=== PATIENT | male | born 1960 | race Caucasian/White ===

== ENCOUNTER 2017-07-02 11:11 | Inpatient (IN) | payer OTHER ==
--- NOTE | 2017-07-02 11:56 | CPEKG ---
Heart Rate: 72 RR Interval: 833 P-R Interval: 156 QRSD Interval: 92 QT Interval: 368 QTC Interval: 403 P [place]: 29 QRS [place]: -2 T Wave [place]: 52 EKG Severity - NORMAL ECG - EKG Impression: SINUS RHYTHM Electronically Signed By: Dimitri Parkinson 03-Jul-2017 08:33:26
--- NOTE | 2017-07-02 12:33 | EDPHY ---
H & P Time Seen by Provider: 07/02/17 11:52 HPI/ROS: CHIEF COMPLAINT: Right face swelling HISTORY OF PRESENT ILLNESS: The patient is a 57-year-old male who presents emergency department with the recent complex medical history. He was sent in by his primary care physician Dr. Longoria for admission and further workup. 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 The patient developed right shoulder and scapular pain a couple of weeks ago. This progressed to his right chest and axilla. He has seen his primary care physician multiple times for this. His workup has included a chest x-ray which showed being megaly. This resulted in an echocardiogram which showed atrial shadow. He is scheduled to follow up with Cardiology. The patient had a CT myelogram. He is unable to get an MRI due to his pacer. This showed no acute disease. He was evaluated by a dentist with the panoramic x- ray for abscess. This was read as negative. Patient now has increasing right facial swelling and right neck swelling. His right shoulder pain persists. He has no shortness of breath. No cough. No fevers or chills. The patient's primary care physician reports that his heart rate has been in the 40s and his pacemaker is not firing. The patient is not lightheaded or dizzy. REVIEW OF SYSTEMS: My complete review of systems is negative except as mentioned in the HPI. Past Medical/Surgical History: Includes superior vena can syndrome Past surgical history: Includes angioplasty for superior vena cava syndrome, cholecystectomy Social: The patient is . Does not smoke. Smoking Status: Never smoked Physical Exam: Vitals noted. GENERAL: Well-appearing, in no acute distress, alert. HEENT: Patient has swelling to the right side of his face. There is erythema or warmth. He seems to have a right lower facial droop. Eyes normal to inspection, normal pharynx, no signs of dehydration. NECK: The patient's right lateral knee swelling. No erythema or warmth. No tenderness palpation. No adenopathy. No thyromegaly. supple. No signs of meningismus. RESPIRATORY: Clear to auscultation bilaterally, no rales, rhonchi or wheezing. CVS: Regular rate and rhythm, no rubs, murmurs, or gallops. ABDOMEN: Soft, nontender, nondistended, no organomegaly. BACK: Normal to inspection, no CVA tenderness. SKIN: Normal color, no rash, warm, dry. No pallor. EXTREMITIES: No pedal edema, no calf tenderness, no Homans sign or cords, no joint swelling. NEURO/PSYCH: Alert and oriented x3, normal mood and affect, normal motor sensory exam. No obvious cranial nerve deficit. Constitutional: Initial Vital Signs Temperature (C) 36.8 C 07/02/17 11:19 Heart Rate 75 07/02/17 11:19 Respiratory Rate 18 07/02/17 11:19 Blood Pressure 163/91 H 07/02/17 11:19 O2 Sat (%) 96 07/02/17 11:19 O2 Delivery Mode Room Air Allergies/Adverse Reactions: No Known Allergies Allergy (Verified 07/02/17 11:17) Home Medications: Medication Instructions Recorded Amoxicillin Trihydrate 500 mg PO Q8H 07/02/17 [Amoxicillin] Aspirin [Aspirin 81mg (*)] 81 mg PO HS 07/02/17 Atorvastatin Calcium [Lipitor 40 40 mg PO HS 07/02/17 mg (*)] Herbals/Supplements -Info Only 1 ea PO DAILY 07/02/17 Hydrocodone/Acetaminophen [[place] 1 - 2 tab PO Q6H PRN 07/02/17 5/325 (*)] Lisinopril [Zestril 40 mg (*)] 40 mg PO DAILY 07/02/17 Meloxicam [Mobic 15 mg] 15 mg PO HS 07/02/17 Metoprolol Succinate Xr [Toprol Xl 75 mg PO HS 07/02/17 50 mg (*)] [place]-3 Fatty Acids [Fish Oil 1000 3,000 mg PO DAILY 07/02/17 mg (*)] Sertraline HCl [Zoloft 50mg (*)] 50 mg PO HS 07/02/17 metroNIDAZOLE [Flagyl 500 mg (*)] 500 mg PO Q8H 07/02/17 Medical Decision Making ED Course/Re-evaluation: In the emergency department I discussed the plan with the patient. I answered all his questions. The gained affects from the patient's primary care physician with all of his previous studies. CT imaging was ordered. EKG shows normal sinus rhythm, normal rate, normal axis, normal intervals. There are no ST or T-wave abnormalities. EKG is normal as interpreted by me. The patient's CBC, chemistry, LFTs and lipase are normal. I discussed the case with the hospitalist service. The patient will be admitted for further evaluation. The patient is aware the plan. Head CT: Please refer the dictated report by Dr. Graham Guardado. The noncontrast head CT showed diffuse subarachnoid hemorrhage in both parietal lobes. I discussed the patient's history. Dr. Guardado will add on CT venogram. Report was given while the patient was still in CT imaging. I have not yet reported the results with the patient. I discussed the case with Dr. Bradshaw from the hospitalist service. He requests the patient be admitted to the PCU. CT imaging: Please refer the dictated report by Dr. Graham Guardado. I have further imaging studies reported. The patient has bilateral parietal subarachnoid hemorrhage. There is pre pontine hemorrhage by the brainstem. There appears to be tonsillar and uncal herniation. The patient's neck vessels appeared to be open. The patient has SVC stent in place. The SVC is small above the stent. The pacer is located on the left. The chest is otherwise clear. I discussed the case with Dr. Bradshaw from the hospitalist service. I also discussed the case with Neurosurgery. The patient's bed was upgraded to an ICU bed. I discussed the case with the patient and answered all his questions. On recheck he had no new focal deficits. He continues to have a right lower facial palsy. The swelling appears unchanged. PERRLA. The patient is smiling and interactive. He is acting appropriately. Patient denies headache or neck pain. Differential Diagnosis: My differential includes but is not limited to superior vena cava syndrome, vascular occlusion, action, aneurysm, coronary syndrome, CVA Critical Care Time: The patient required 35 min of critical care time. This was exclusive of any unbundled procedure. This was due the patient's significant recent history, reviewed the patient's medical record, consultation with the hospitalist and Neurosurgery, consultation with the radiologist, frequent rechecks. - Data Points Laboratory Results: Laboratory Results 07/02/17 11:59 07/02/17 11:59 07/02/17 07/02/17 07/02/17 11:59 11:59 11:59 WBC 7.55 10^3/uL 10^3/uL (3.80-9.50) RBC 5.39 10^6/uL 10^6/uL (4.40-6.38) Hgb 15.8 g/dL g/dL (13.7-17.5) Hct 46.8 % % (40.0-51.0) MCV 86.8 fL fL (81.5-99.8) MCH 29.3 pg pg (27.9-34.1) MCHC 33.8 g/dL g/dL (32.4-36.7) RDW 13.7 % % (11.5-15.2) Plt Count 184 10^3/uL 10^3/uL (150-400) MPV 10.2 fL fL (8.7-11.7) Neut % (Auto) 64.0 % % (39.3-74.2) Lymph % (Auto) 21.9 % % (15.0-45.0) [place] % (Auto) 11.9 % % (4.5-13.0) Eos % (Auto) 1.1 % % (0.6-7.6) Baso % (Auto) 0.7 % % (0.3-1.7) Nucleat RBC Rel Count 0.0 % % (0.0-0.2) Absolute Neuts (auto) 4.84 10^3/uL 10^3/uL (1.70-6.50) Absolute Lymphs (auto) 1.65 10^3/uL 10^3/uL (1.00-3.00) Absolute Monos (auto) 0.90 10^3/uL H 10^3/uL (0.30-0.80) Absolute Eos (auto) 0.08 10^3/uL 10^3/uL (0.03-0.40) Absolute Basos (auto) 0.05 10^3/uL 10^3/uL (0.02-0.10) Absolute Nucleated RBC 0.00 10^3/uL 10^3/uL (0-0.01) Immature Gran % 0.4 % % (0.0-1.1) Immature Gran # 0.03 10^3/uL 10^3/uL (0.00-0.10) PT 13.4 SEC SEC (12.0-15.0) INR 1.00 (0.83-1.16) APTT 29.7 SEC SEC (23.0-38.0) Sodium 141 mEq/L mEq/L (134-144) Potassium 4.2 mEq/L mEq/L (3.5-5.2) Chloride 103 mEq/L mEq/L (97-110) Carbon Dioxide 24 mEq/l mEq/l (22-31) Anion Gap 14 mEq/L mEq/L (8-16) BUN 21 mg/dL mg/dL (7-23) Creatinine 1.1 mg/dL mg/dL (0.7-1.3) Estimated GFR > 60 Glucose 91 mg/dL mg/dL (70-100) Calcium 10.3 mg/dL mg/dL (8.5-10.4) Total Bilirubin 0.7 mg/dL mg/dL (0.1-1.4) Conjugated Bilirubin 0.4 mg/dL mg/dL (0.0-0.5) Unconjugated Bilirubin 0.3 mg/dL mg/dL (0.0-1.1) AST 19 IU/L IU/L (17-59) ALT 44 IU/L IU/L (21-72) Alkaline Phosphatase 88 IU/L IU/L (38-126) Troponin I < 0.012 ng/mL ng/mL (0.000-0.034) Total Protein 7.3 g/dL g/dL (6.3-8.2) Albumin 4.4 g/dL g/dL (3.5-5.0) Lipase 186 IU/L IU/L (23-300) Medications Given: Discontinued Medications Sodium Chloride (Ns) 500 mls @ 1,000 mls/hr IV EDNOW ONE PRN Reason: Protocol Stop: 07/02/17 13:05 Last Admin: 07/02/17 12:45 Dose: 500 mls Departure - Departure Disposition: [place] Inpatient Acute Clinical Impression: Right facial swelling, Right facial droop, Subarachnoid bleed, Stenosis of superior vena cava Condition: Fair
[2017-07-02] MEDS ORDERED: NS 500 ML IV ONE (12:36)
[2017-07-02 12:42] LABS: % IMMATURE GRANULYOCYTES 0.4 % (0.0-1.1); ABSOLUTE IMMATURE GRANULOCYTES 0.03 10^3/uL (0.00-0.10); ADD DIFF? NO; ADD MORPH? NO; ADD SCAN? NO; ATYPICAL LYMPHOCYTE FLAG 0 (0-99); FRAGMENT RBC FLAG 0 (0-99); HEMATOCRIT 46.8 % (40.0-51.0); HEMOGLOBIN 15.8 g/dL (13.7-17.5); LEFT SHIFT FLG 0 (0-99); LIPEMIA HEMOLYSIS FLAG 90 (0-99); MEAN CELL HEMOGLOBIN 29.3 pg (27.9-34.1); MEAN CELL HEMOGLOBIN CONCENTR. 33.8 g/dL (32.4-36.7); MEAN CELL VOLUME 86.8 fL (81.5-99.8); MEAN PLATELET VOLUME 10.2 fL (8.7-11.7); PLATELET CLUMPS FLAG 0 (0-99); PLATELET COUNT 184 10^3/uL (150-400); RED BLOOD CELL COUNT 5.39 10^6/uL (4.40-6.38); RED CELL DISTRIBUTION WIDTH 13.7 % (11.5-15.2)
[2017-07-02 12:46] LABS: PROTIME(PATIENT) 13.4 SEC (12.0-15.0)
[2017-07-02 12:47] LABS: APTT 29.7 SEC (23.0-38.0)
[2017-07-02 12:48] LABS: ALANINE AMINOTRANSFERASE 44 IU/L (21-72); ALBUMIN 4.4 g/dL (3.5-5.0); ALKALINE PHOSPHATASE 88 IU/L (38-126); ANION GAP 14 mEq/L (8-16); ASPARTATE AMINOTRANSFERASE 19 IU/L (17-59); BILIRUBIN,TOTAL 0.7 mg/dL (0.1-1.4); BILIRUBIN-CONJUGATED 0.4 mg/dL (0.0-0.5); BILIRUBIN-UNCONJUGATED 0.3 mg/dL (0.0-1.1); CALCIUM 10.3 mg/dL (8.5-10.4); CARBON DIOXIDE 24 mEq/l (22-31); CHLORIDE 103 mEq/L (97-110); CREATININE 1.1 mg/dL (0.7-1.3); GLOMERULAR FILTRATION RATE > 60; GLUCOSE 91 mg/dL (70-100); POTASSIUM 4.2 mEq/L (3.5-5.2); SODIUM 141 mEq/L (134-144); TOTAL PROTEIN 7.3 g/dL (6.3-8.2)
[2017-07-02 12:59] LABS: TROPONIN I < 0.012 ng/mL (0.000-0.034)
[2017-07-02] MEDS ORDERED: IOPAMIDOL (ISOVUE 370) 100 ML BTL IV ONE (13:13)
[2017-07-02] MEDS ORDERED: ACETAMINOPHEN 325 MG TAB PO PRN (15:43)
[2017-07-02] MEDS ORDERED: ONDANSETRON 4 MG/2 ML VIAL IVP PRN (15:43)
[2017-07-02] MEDS ORDERED: HYDROmorphONE/DILAUDID 1 MG/ML INJ IVP PRN (15:43)
[2017-07-02] MEDS ORDERED: PROMETHAZINE HCL 25 MG/ML INJ IVP PRN (15:43)
[2017-07-02] MEDS ORDERED: ONDANSETRON DISINTEGRATING 4 MG TAB PO PRN (15:43)
[2017-07-02] MEDS ORDERED: HYDROmorphone HCL/NS/PF 0.4 MG/2 ML SYR IVP PRN (15:46)
[2017-07-02 16:09] LABS: HEMATOCRIT 46.8 % (40.0-51.0)
--- NOTE | 2017-07-02 16:54 | GHP ---
[f rep st] HISTORY AND PHYSICAL DATE OF ADMISSION: 07/02/2017 The patient is a 57-year-old gentleman with a history of remote SVC syndrome with stent, pacemaker, who presents to the emergency department at the request of his primary care physician regarding recent facial swelling, as well as pain shooting down his right arm, shoulder and even flank, as well as a new right- sided facial droop. He has also had some tooth pain. He had recent Panorex dental x-ray showing no abscess. The patient has not had fever or chills. He has lost about 5 pounds because of poor p.o. intake, but no B symptoms such as drenching night sweats. He has not had a recent dental cleaning. He has had up-to-date colonoscopies. He has a mild headache but no significant headache. He is alert and conversant when I speak with him. He does not use IV drugs. The patient is largely without complaints, other than this facial swelling. He has had a large outpatient workup that includes a Panorex which is negative for tooth abscess, a CT myelogram performed yesterday which is essentially unremarkable. During that time some CSF was removed via lumbar puncture. He has an echocardiogram that showed normal LV EF 60%, mild septal wall hypertrophy with diastolic dysfunction, normal RV size and function, highly mobile density measuring about 1 cm attached to the mitral anulus from the atrial side. He also had a CT myelogram showing multilevel degenerative disk disease with disk space narrowing, moderate diffuse bulges, marginal osteophytes , no central canal stenosis, moderate foraminal narrowing, with the exception of C5-C6 he has moderate narrowing on the right. The patient otherwise has a negative review of systems, a 10-point review of systems having been conducted. The patient actually looks clinically quite well and is conversant and alert. PAST MEDICAL HISTORY: Hypertension, hyperlipidemia, hypogonadism, sick sinus syndrome status post pacer in the 90s, when he was in his 30s, history of SVT, history of ventricular tachycardia, superior vena cava syndrome status post stent, nonobstructive coronary disease, YUN on CPAP, hyperplastic colon polyp, hemorrhoids he describes as aggressive. SOCIAL HISTORY: He travels a lot for work, lives in [place], has 1-2 beers every couple of days. His is , she is an RN, present at the bedside. FAMILY HISTORY: Notable for coronary disease in his brother and father, asthma in his mom and son. ALLERGIES: He has no known drug allergies. HOME MEDICATIONS: Amoxicillin for tooth abscess, hydrocodone, APAP, metronidazole for tooth abscess, aspirin, atorvastatin, lisinopril, meloxicam, metoprolol 75 h.s., fish oil, sertraline. PHYSICAL EXAMINATION: VITAL SIGNS: Temp 36.8, blood pressure 163/91, pulse 75 , breathing 18 times a minute, 96% on room air. GENERAL: No acute distress. HEENT: He has some facial swelling. He has a right facial droop. Oropharynx is clear. He has no pain on percussion of his right-sided teeth. NECK: Supple. It is swollen. Neck veins are elevated. LUNGS: Clear to auscultation bilaterally. HEART: S1, S2 without murmurs. ABDOMEN: Soft, nontender, nondistended. LOWER EXTREMITIES: Without edema. Calves are nontender. SKIN: Without rash. He has no peripheral embolic phenomenon in the hands or nails. NEUROLOGIC: Notable for strength and sensation are intact bilaterally with his upper and lower extremity sensation. Cerebellar testing is normal. Speech is normal and fluent without dysarthria. He has a right facial droop. LABS: White count 7.5, hematocrit 47, platelets are 184,000. INR is 1. Sodium 141, potassium 4.2, chloride 103, bicarb 24, BUN 21, creatinine 1.1. LFTs normal. Troponin less than 0.012. EKG interpreted by me, shows sinus at 72 with normal axis and intervals, with no ST or T-wave changes. There are no dropped beats. CT of his head was initially read as bilateral parietal subarachnoid hemorrhage, subarachnoid blood in the basilar cisterns. This has been updated to be felt that it is actually contrast from a CT myelogram yesterday. He does have ischemic changes with the brainstem and farhad associated with mild tonsillar and uncal herniation. Again I will remind you the patient is alert and conversant. CTA of the head and neck shows no obstruction. CT of the chest shows negative for acute pulmonary embolism. Left subclavian transvenous pacer. Severe narrowing of his SVC proximally at the confluence of the brachiocephalic veins. There is a stent in place. I have discussed the case with Dr. Lamonte Pedroza and Dr. Alla Ferguson, as well as Dr. Niki Nevarez and Dr. Hugh Choi. 80 minutes of critical care was spent taking care of this patient. 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 1. Superior vena cava syndrome. I believe the patient has SVC syndrome on the basis of a CTA of his chest and his facial swelling. How it relates to his facial droop, I am uncertain. Ultimately, when his neurosurgical and infectious issues have been cleared up he needs another stent. Interventional Radiology can be contacted at that time. 2. Question of endocarditis. The patient has no peripheral embolic findings consistent with endocarditis. I have drawn blood cultures now. I have drawn blood cultures for the morning. Infectious Disease will see him. On his recent Panorex, I do not have the film, is not consistent with an abscessed tooth, nor is his exam. He did have some tooth pain prior. Will follow. I will not continue his antibiotics. I spoken with Cardiology, will perform JENNIFER in the morning. 3. Possible herniation. The patient has elevated intracranial pressure on the basis of an SVC syndrome, and he also had a lumbar puncture with small volume of CSF removal. He has been seen by Neurosurgery. His exam findings are not consistent with somebody who is herniating. He will be followed in step-down and Neurosurgery will follow. Repeat imaging at the discretion of neurosurgery. 4. Pacemaker. There is some question that his pacemaker is not working. He sounds like he has minimal dependence on it. I will interrogate it. 5. Right facial droop. This certainly is consistent with a CVA. Alternative possibilities include stretching of the nerve with sagging of his brain following LP or elevated intracranial pressure. Would follow. I have consulted neurology. 6. Prophylaxis. Pharmacologic prophylaxis indicated, but given the complexity of the current situation, will proceed with SCDs for now. 7. Question subarachnoid hemorrhage. I believe this is contrast, based on the clinical scenario in the patient. 8. Hyperlipidemia. Continue his medicines. 9. Hypertension. Continue his medicines. DISPOSITION: Inpatient status step-down. /[id number]/MODL MTDD
--- NOTE | 2017-07-02 17:30 | GHP ---
[f rep st] HISTORY AND PHYSICAL DATE OF ADMISSION: 07/02/2017 CHIEF COMPLAINT: Right facial swelling. HPI: This is a 57-year-old male with a complex past medical history. He is currently being worked up for supposed SVC syndrome and, as of Thursday, started getting increasing swelling in the right side of his face and pain in his right scapular region and down his right arm. He does follow up with Cardiology and he does have a history of angioplasty versus superior vena cava syndrome in the past. Patient states that on Thursday he started to get swelling in the right side of his face and went to go see his dentist, as they thought it was a tooth abscess. They did a workup and did not find any evidence of any abscess. He states that his pain in his right scapular region was so severe that he was unable to roll over on the right side and was not able to get out of bed due to this pain. He states that over the day it did dissipate, but then toward the evening it would return. Currently today he has no pain in his scapular region or in his armpit, but does continue to have worsening swelling in the right side of his face. The patient was following up with Cardiology today, who recommended that he go to the emergency room at [facility], as they had access to other services, such as Neurology, should these be needed. His prototype model maker was concerned over return for his SVC syndrome. He presented to the [facility] emergency room, where a head CT was performed, that showed what was thought to be scattered diffuse subarachnoid hemorrhage. However, the patient did let us know that yesterday he did have a CT myelogram of his cervical spine in order to look for any further cervical pathology that may explain his arm pain and swelling. Currently at this time, the patient has no other complaints other than his right facial swelling and some mild right- sided posterior scapular pain. He denies any numbness, tingling or pain in his legs. He denies any headaches. He denies any vision changes, any nausea, vomiting, chest pain or shortness of breath. REVIEW OF SYSTEMS: All review of systems are negative, except for mentioned in the HPI. PAST MEDICAL HISTORY: The patient has a history of superior vena cava syndrome. PAST SURGICAL HISTORY: Includes angioplasty for superior vena cava syndrome and cholecystectomy. SOCIAL HISTORY: The patient is . He denies any tobacco use. His is at the bedside today. ALLERGIES: Patient has no known drug allergies. CURRENT MEDICATIONS: Include aspirin, atorvastatin, herbal supplements, [place] 5 /325, lisinopril, meloxicam, metoprolol, omega-3 fatty acids, sertraline and Flagyl. OBJECTIVE: VITAL SIGNS: Blood pressure 145/68, heart rate 71, respiratory rate 16, O2 saturation is 93% on room air, and temperature is 37.3 degrees Celsius. CONSTITUTIONAL: Patient is alert and oriented x3. No acute distress. HEENT: Head is normocephalic, atraumatic. Does have diffuse facial swelling over the right side of his face, especially in his cheek and chin area. This is somewhat tender to palpation. Eyes: Pupils are pupils are equal , react to light and accommodation. Extraocular muscles are intact. NECK: Supple, without any induration and full range of motion. NEUROLOGIC: Cranial nerves 2-12 are grossly intact. Tongue protrusion is midline. Palate raises symmetrically. Accessory muscles are 5/5 and equal in strength. His facial sensation is intact to light touch. There is negative pronator drift. Motor: Bilateral upper extremities are 5/5 and equal in strength including all muscle groups including deltoids, biceps, triceps, wrist extensors, flexors, interossei and derrick builder; and bilateral lower extremities are 5/5 and equal in strength in quadriceps, hamstrings, dorsiflexion, plantarflexion, and EHL. Deep tendon reflexes are 2+ bilaterally in the biceps, brachioradialis, patellar and Achilles. Sensation is intact over the normal dermatomal distribution of the body. He is negative for Bruce's and clonus; and toes are downgoing. MUSCULOSKELETAL: Patient is somewhat tender to palpation over the right posterior scapular region, as well as his right axilla. There is no swelling of note here or redness or erythema. EXTREMITIES: Extremities are pink, warm; and there is no cyanosis or edema noted in his upper extremities or lower extremities. LABORATORY DATA: Laboratory data taken on 07/02/2017 reveals a white blood cell count of 7.55, red blood cell count 5.39, hemoglobin 15.8, hematocrit 46.8 , platelets are 184. ESR is currently pending. Coags: INR is 1.0, aPTT is 29.7, PT 13.7. Sodium 141, potassium 4.2, chloride 103, carbon dioxide 24, anion gap 14, BUN 21, creatinine 1.1, glucose 91, calcium 10.3. Troponin less than 0.012. C-reactive protein 35.0. Total protein 7.3, albumin 4.4, and lipase is 186. DIAGNOSTIC IMAGING REVIEW: A head CT was performed without contrast, which showed initially bilateral parietal subarachnoid hemorrhage and subarachnoid blood within the basilar cisterns. Ischemic changes within the brainstem and farhad associated with mild tonsillar and uncal herniation. Additional clinical information was provided by the patient, given that he underwent a myelographic examination yesterday [facility]. Given this information, the hyperdensity present in the subarachnoid spaces of the parietal regions bilaterally and the basilar cisterns is most likely related to residual iodinated contrast in the subarachnoid space from recent myelographic examination. This would explain the symmetry bilaterally of the findings. The hypodensity of the brainstem may be related to adjacent increased iodinated contrast from the myelography as well. A ACTV was performed as well as a head CT and CTA, but no report is available for me to review at this time. They are reportedly negative. A chest and thorax CTA was performed, which shows negative CT examination of the chest for acute pulmonary thromboembolic disease. A left subclavian transvenous pacemaker. Severe narrowing of the superior vena cava proximally at the confluence of the brachiocephalic veins. ASSESSMENT AND PLAN: This is a 57-year-old gentleman who over the last few days has had an increase in swelling of the right side of his face as well as pain in the right scapular region in his right arm. The patient does have a significant history for superior vena cava syndrome, and he is currently being worked up by Cardiology. Neurosurgery was consulted after a head CT was performed that showed what was thought to be scattered subarachnoid hemorrhage, but further clinical documentation was found that stated the patient did undergo a CT myelogram of his cervical spine yesterday and that these findings on his head CT were likely to be from the leftover iodinated contrast. The patient is GCS 15 without any other neurological deficits. He does have right- sided facial swelling and tenderness location over the right scapular region. The patient will be admitted to the stepdown unit for further workup by Cardiology. We do not have current images to review for his CT myelogram of the cervical spine; however, when this is available, we will review this tomorrow in order to see if there is any cervical pathology that could relate to any of his symptoms. NEUROSURGERY ATTENDING NOTE I saw the patient in the ER and agree with the note as outline above. I reviewed his images with Radiology, and they agree that his hyperdensities are contrast related and not bleeding. This would mean he requires no further imaging from our standpoint and does not appear to have a Neurosurgical issue. We will try to review his cervical spine CT myelogram and make outpatient recommendations from there. This was discussed with the patient, his , the admitting Medicine team and the ER team, who were all in agreement. /[id number]/MODL MTDD
[2017-07-02] MEDS: HYDROCODONE/APAP 5/325 TAB PO PRN (18:23)
[2017-07-02] MEDS: LISINOPRIL 40 MG TAB PO SCH (23:30)
[2017-07-02] MEDS: MELOXICAM 15 MG PO SCH (23:30)
[2017-07-02] MEDS: ASPIRIN 81 MG CHEWABLE TAB PO SCH (23:30)
[2017-07-02] MEDS: ATORVASTATIN CALCIUM 40 MG TAB PO SCH (23:31)
[2017-07-02] MEDS: METOPROLOL SUCCINATE XR 50 MG TAB PO SCH (23:31)
[2017-07-02] MEDS: SERTRALINE HCL 50 MG TAB PO SCH (23:32)
[2017-07-03] MEDS: ASPIRIN 81 MG CHEWABLE TAB PO SCH ×2 (00:04→00:59)
[2017-07-03] MEDS: OMEGA-3 FATTY ACIDS 1,000 MG CAP PO SCH ×2 (00:05→21:06)
[2017-07-03] MEDS: SERTRALINE HCL 50 MG TAB PO SCH ×2 (00:05→21:07)
[2017-07-03 06:14] LABS: % IMMATURE GRANULYOCYTES 0.4 % (0.0-1.1); ABSOLUTE IMMATURE GRANULOCYTES 0.03 10^3/uL (0.00-0.10); ADD DIFF? NO; ADD MORPH? NO; ADD SCAN? NO; ATYPICAL LYMPHOCYTE FLAG 0 (0-99); FRAGMENT RBC FLAG 0 (0-99); HEMATOCRIT 45.2 % (40.0-51.0); HEMOGLOBIN 15.5 g/dL (13.7-17.5); LEFT SHIFT FLG 0 (0-99); LIPEMIA HEMOLYSIS FLAG 90 (0-99); MEAN CELL HEMOGLOBIN CONCENTR. 34.3 g/dL (32.4-36.7); MEAN CELL VOLUME 87.6 fL (81.5-99.8); MEAN PLATELET VOLUME 10.1 fL (8.7-11.7); PLATELET CLUMPS FLAG 0 (0-99); PLATELET COUNT 195 10^3/uL (150-400); RED BLOOD CELL COUNT 5.16 10^6/uL (4.40-6.38); RED CELL DISTRIBUTION WIDTH 13.7 % (11.5-15.2)
[2017-07-03 06:22] LABS: INR 1.05 (0.83-1.16); PROTIME(PATIENT) 13.9 SEC (12.0-15.0)
[2017-07-03 06:23] LABS: APTT 30.8 SEC (23.0-38.0)
[2017-07-03 06:57] LABS: ANION GAP 14 mEq/L (8-16); CALCIUM 9.9 mg/dL (8.5-10.4); CARBON DIOXIDE 23 mEq/l (22-31); CHLORIDE 104 mEq/L (97-110); GLOMERULAR FILTRATION RATE > 60; GLUCOSE 101 mg/dL (70-100); POTASSIUM 4.6 mEq/L (3.5-5.2); SODIUM 141 mEq/L (134-144)
[2017-07-03] MEDS ORDERED: OMEGA-3 FATTY ACIDS 1,000 MG CAP PO SCH (09:00)
[2017-07-03] MEDS ORDERED: Herbals/Supplements -Info Only PO SCH (09:00)
[2017-07-03] MEDS ORDERED: LISINOPRIL 40 MG TAB PO SCH (09:00)
--- NOTE | 2017-07-03 09:58 | NEUSURGPN ---
Assessment/Plan: 57y/o male with shoulder pain and facial swelling. His CT mhyelogram from [facility] on 07/01/17 demonstrates C5/6 foraminal stenosis without central cord compression. This may be contributing to the patient shoulder pain. Would recommended he follow up with our office in 4 weeks ( either with Dr. Pedroza or Dr. Negron in [place] No acute neurosurgical indication on his CT myelogram. Appreciate medicine working up his facial swelling. Will s/o off at this time. Please notify NS with any change in neuro/ motor exam Subjective: facial swelling and movement improved today. Continues with shoulder pain Objective: NAD A&Ox3 MAEx4 5/5 and equal in BUE and BLE. - Physician Discussed Patient with : [facility] Physical Exam - Vitals, I&O, Labs I and O 07/02/17 07/03/17 07/04/17 05:59 05:59 05:59 Intake Total 1500 Balance 1500 Weight 101.514 kg Intake: Oral (ml) 1000 IV Infused (ml) 500 Other: Number of Voids 1 Toilet 3 Vital Signs Temp Pulse Resp BP Pulse Ox 36.8 C 60 15 122/76 H 96 07/03/17 00:06 07/03/17 06:01 07/03/17 06:01 07/03/17 06:01 07/03/17 06:01 Laboratory Results 07/03/17 06:05 07/03/17 06:05 ICD10 Worksheet Patient Problems: Problems Problem Status Onset Right facial swelling Acute Stenosis of superior vena cava Acute Subarachnoid bleed Acute
--- NOTE | 2017-07-03 11:00 | HOSPPROG ---
Hospitalist Progress Note Assessment/Plan: New patient encounter This is a 57 yo male with hx of SVC syndrome/obstruction who p/w several weeks of worsening right sided neck and facial swelling as well as right facial droop and right shoulder swelling. #SVC syndrome -Clinically right facial and neck swelling is improving today -Previous Stent in place, may need repeat #?SAH. This is likely due to contrast from CT Myelogram of cervical spine done on the day prior to admission #malfunctioning Pacemaker. The pacer is being interrogated today #?Pericarditis. Not currently on abx. He is scheduled for a JENNIFER today. ID will consult #Right shoulder pain: Etiology unclear. CT Myelogram is c/w c5/6 foraminal stenosis w/o cervical cord compression. NS recommends that he f/u in [address] Morton vs Dr. Negron. NS has signed off #Right facial droop: Neuro is following. This is likely as a result the swelling. No e/o of CVA. Very reassuring neuro exam #HTN: overall well controlled. On Lisinopril and Metoprolol #YUN: on CPAP DVT proph: SCD's Dispo: cont inpatient Subjective: Facial swelling is improving. Right shoulder pain is better. No focal neuro deficits. No CP, palpitations, SOB, leg swelling. Objective: Vital Signs Temp Pulse Resp BP Pulse Ox 36.8 C 60 15 122/76 H 96 07/03/17 00:06 07/03/17 06:01 07/03/17 06:01 07/03/17 06:01 07/03/17 06:01 Laboratory Results 07/03/17 06:05 07/03/17 06:05 07/02/17 07/03/17 07/04/17 05:59 05:59 05:59 Intake Total 1500 Balance 1500 PT 13.9 SEC (12.0-15.0) 07/03/17 06:05 INR 1.05 (0.83-1.16) 07/03/17 06:05 - Physical Exam Constitutional: no apparent distress Eyes: PERRL Ears, Nose, Mouth, Throat: moist mucous membranes, hearing normal, other (right sided face and neck swelling) Cardiovascular: regular rate and rhythym, No JVD, No edema Respiratory: no respiratory distress, no rales or rhonchi, clear to auscultation Gastrointestinal: normoactive bowel sounds, soft, non-tender abdomen Skin: warm Neurologic: AAOx3 Psychiatric: interacting appropriately, not anxious, not encephalopathic, thought process linear ICD10 Worksheet Patient Problems: Problems Problem Status Onset Right facial swelling Acute Stenosis of superior vena cava Acute Subarachnoid bleed Acute
--- NOTE | 2017-07-03 11:23 | PDMN ---
Medical Necessity Medical necessity: Patient meets INPT criteria per physician note and [facility] Disease [facility] (presents w/ new onset R-sided facial droop and recent increasing facial swelling, R arm/shoulder/flank pain; remote hx of SVC syndrome w/stent; awaiting JENNIFER and further cardiac evaluation and ID consult; anticipated LOS > 2 midnights for ongoing eval and treatment.)
--- NOTE | 2017-07-03 11:46 | ASMTCASEMG ---
Living Arrangements What is your living Answers: With Spouse arrangement? Who do you live with? Type Of Residence What kind of residence do Answers: House you live in? Discharge Plan Comments Coordination Status Comments Notes: Patient is a 57yo male with a hx of remote SVC syndrome with stent, pacemaker, who was admitted for unexplained facial swelling and right sided facial droop. No therapies have been ordered. Patient is and lives in [place] with his . D/C needs TBD. Patient will likely d/c home independently. CM will follow. Date Signed: 07/03/2017 11:46 AM Electronically Signed By:Maria Antonia Lake LCSW
--- NOTE | 2017-07-03 13:34 | PDANEPAE ---
ANE History of Present Illness here for JENNIFER/CV ANE Past Medical History - Cardiovascular History Hx Hypertension: Yes Hx Arrhythmias: No Hx Chest Pain: No Hx Coronary Artery / Peripheral Vascular Disease: No Hx CHF / Valvular Disease: No Hx Palpitations: Yes Cardiovascular History Comment: h/o SCV syndrome - Pulmonary History Hx COPD: No Hx Asthma/Reactive Airway Disease: No Hx Recent Upper Respiratory Infection: No Hx Oxygen in Use at Home: No Hx Sleep Apnea: Yes Sleep Apnea Screening Result - Last Documented: Positive - Endocrine History Hx Diabetes: No - Renal History Hx Renal Disorders: No - Liver History Hx Hepatic Disorders: No - Chronic Pain History Chronic Pain: No ANE Review of Systems Review of systems is: negative Review of Systems: - Exercise capacity Exercise capacity: >=4 METS ANE Patient History - Allergies Allergies/Adverse Reactions: No Known Allergies Allergy (Verified 07/02/17 11:17) - Home Medications Home medications: home medication list seen and reviewed Home Medications: Amoxicillin Trihydrate [Amoxicillin] 500 mg PO Q8H 07/02/17 [Last Taken 05:00] Aspirin [Aspirin 81mg (*)] 81 mg PO HS 07/02/17 [Last Taken 06/24/17] Atorvastatin Calcium [Lipitor 40 mg (*)] 40 mg PO HS 07/02/17 [Last Taken ] Herbals/Supplements -Info Only 1 ea PO DAILY 07/02/17 [Last Taken 07/01/17] Hydrocodone/Acetaminophen [[place]uney 5/325 (*)] 1 - 2 tab PO Q6H PRN 07/02/17 [Last Taken 07/02/17 05:00] Lisinopril [Zestril 40 mg (*)] 40 mg PO DAILY 07/02/17 [Last Taken 07/01/17] Meloxicam [Mobic 15 mg] 15 mg PO HS 07/02/17 [Last Taken 07/01/17] Metoprolol Succinate Xr [Toprol Xl 50 mg (*)] 75 mg PO HS 07/02/17 [Last Taken 07/01/17] [place]-3 Fatty Acids [Fish Oil 1000 mg (*)] 3,000 mg PO DAILY 07/02/17 [Last Taken 07/01/17] Sertraline HCl [Zoloft 50mg (*)] 50 mg PO HS 07/02/17 [Last Taken 07/01/17] metroNIDAZOLE [Flagyl 500 mg (*)] 500 mg PO Q8H 07/02/17 [Last Taken 07/02/17 05 :00] - NPO status NPO Status: no food or drink >8 hours NPO Since - Liquids (Date): 07/02/17 NPO Since - Liquids (Time): 00:00 NPO Since - Solids (Date): 07/02/17 NPO Since - Solids (Time): 00:00 - Smoking Hx Smoking Status: Never smoked ANE Labs/Vital Signs - Labs Result Diagrams: 07/03/17 06:05 07/03/17 06:05 - Vital Signs Blood Pressure: 118/61 Heart Rate: 68 Respiratory Rate: 15 O2 Sat (%): 93 Height: 180.34 cm Weight: 101.514 kg
[2017-07-03] MEDS ORDERED: PROPOFOL/EMULSION 500 MG/50 ML BOTTLE IV ONE ×2 (13:36)
--- NOTE | 2017-07-03 13:36 | PDHPUP ---
History & Physical Update H&P update statement: This history and physical update is based on an assessment of the patient which was completed after admission or registration (within 24 hours), but prior to the surgery/procedure. H&P update: H&P reviewed & patient examined, no change in patient's condition since H&P completed
--- NOTE | 2017-07-03 14:14 | NEUROPROG ---
Assessment: [id number] CC: Dr. Philip Bradshaw (Hospitalist) consulted neurology for right facial weakness. Results placed in EMR for his review. HPI: He has a complicated history but it appears he has had superior vena cava syndrome in the past. He has had unexplained right facial swelling for the past few weeks and it was noted some right facial weakness. His facial swelling has improved since admission and now his right facial weakness is improved (per patient). Pt also evaluated by neurosurgery for a head CT which suggested SAH but was later felt to be from a recent CT myelogram with remaining dye. Neurosurgery reviewed the myelogram and found it showed some degenerative changes which may explain his right shoulder pain. He was told to f/u otpt with neurosurgery to address. He was neurologically normal (othan right facial swelling and weakness) so it was felt he did not have any acute intracranial problem. He could not obtain a brain MRI due to a pacemaker. Cardiology also was evaluating him for a possible malfunctioning pacemaker, possible cardiac mass, and possible endocarditis. ID was consulted as well. I saw the patient initially on 07/03/17 and noted right cheek region mild to moderate swelling and mild right facial weakness (possibly eye more open on right and lower facial weakness). I felt his right facial weakness was likely compressing his facial nerve but both conditions were improving. I recommended outpatient f/u with me in 1-3 weeks. 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, CAD, YUN on CPAP, hyperplastic colon polyp, hemorrhoids Home Meds: amoxicillin for tooth abscess, hydrocodone, APAP, metronidazole, ASA , atorvastatin, lisinopril, mobic, metoprolol, sertraline SHx: FHx: CAD, asthma ROS: Pt denied acute fever, total vision loss, active severe chest pain, respiratory failure, total body severe rash, total bowel/bladder incontinence, psychosis, active seizures, or active bleeding O: VS reviewed General: Alert Eyes: Fundoscopic exam not able to visualize optic disks CV: Heart RRR, no murmur, no carotid bruit Lungs: Clear to auscultation bilaterally, no rhonci or rales Neuro: - Mental: . Oriented x person/place/date . concentration appears normal . speech fluency/comprehension normal . memory appears normal . fund of knowledge appear intact - Cranial Nerves: . II: PERRL, VFFTC . III/IV/: EOMI, no nystagmus, normal smooth pursuits, no Ptosis . V: facial sensation intact to LT . VII: mild right lower facial weakness and right eye appears more open the left (weakness on right eye closure?) but pt also has noted swelling in the right cheek area . VIII: hearing intact to conversation . IX/X: uvula raises symmetrically . XI: SCM 5/5 B/L strength . XII: tongue protrudes midline w/nl strength - Motor: . Tone: normal tone in all 4 extrem . Strength: no pronator drift, strength 5/5 throughout (B/L delt, bic, tri, hand sales and marketing specialist, hf/he, df/pf) - Reflexes: B/L bic/BR/patella 2/4 - Sensory: all 4 extrem intact to light touch - Coord: [id number] wnl, EAMON wnl, [id number] wnl - Gait: deferred Labs: 07/02/17- ESR 10, CMP wnl, CRP 35H 07/03/17- CBC wnl, Coags wnl Rads: 07/02/17- Head CT: B/L parietal SAH and ischemic changes in brainstem and farhad associated with mild tonsillar and uncal herniation (neurosurgery felt this was most likely persistent contrast from recent CT myelogram). (I personally visualized the study on 07/03/17) 07/02/17- CTA head/neck: normal CTA of neck, normal CTA of head Assessment: 1. Possible Endocarditis, malfunctioning pacemaker, possible cardiac mass, and SVC Syndrome: ID and cardiology consulting 2. Possible SAH but more likely not and related to dye from prior CT: Neurosurgery consulting 3. RIght Facial Swelling and Right Facial weakness: Unclear cause. Facial weakness likely be from facial swelling compressing nerve. Facial weakness improving with improved facial swelling. Defer management and evaluation of facial swelling to hospitalist. 4. Possible Herniation of brain on head CT: Neurosurgery consulting and they feel there is likely no significant brain problem. As the patient is wide awake and neurologically normal (other than right facial swelling) I agree with that assessment. Pt cannot have MRI due pacemaker. Will get repeat head CT and if unremarkable will not pursue further evaluation. 5. Right shoulder pain: Possibly from cervical degen disease. Pt has planned f/ u in neurosurgery clinic to address. Plan: - Head CT - F/U neurology clinic in 1-4 weeks after discharge If head CT is unremarkable then no further neurologic w/u needed and neurology will sign off. Please call for any change in neurologic status. Objective: Vital Signs Temp Pulse Resp BP Pulse Ox 37.1 C 68 15 118/61 93 07/03/17 11:57 07/03/17 13:34 07/03/17 13:34 07/03/17 13:34 07/03/17 13:34 Laboratory Results 07/03/17 06:05 07/03/17 06:05 07/02/17 07/03/17 07/04/17 05:59 05:59 05:59 Intake Total 1500 Balance 1500 PT 13.9 SEC (12.0-15.0) 07/03/17 06:05 INR 1.05 (0.83-1.16) 07/03/17 06:05 Allergies/Adverse Reactions: No Known Allergies Allergy (Verified 07/02/17 11:17)
--- NOTE | 2017-07-03 15:45 | POSTANESTH ---
Post Anesthetic Evaluation Cardiovascular Status: Normal, Stable Respiratory Status: Normal, Stable Level of Consciousness/Mental Status: Can Participate in Eval Pain Control: Adequate, Prn Tx Ordered Nausea/Vomiting Control: Adequate, Prn Tx Ordered Complications Possibly Related to Anesthesia: None Noted
[2017-07-03] MEDS: ATORVASTATIN CALCIUM 40 MG TAB PO SCH (21:05)
[2017-07-03] MEDS: MELOXICAM 15 MG PO SCH (21:05)
[2017-07-03] MEDS: LISINOPRIL 40 MG TAB PO SCH (21:05)
[2017-07-03] MEDS: METOPROLOL SUCCINATE XR 50 MG TAB PO SCH (21:05)
--- NOTE | 2017-07-03 21:28 | NEUROPROG ---
Assessment: Head CT normal, neurology will sign off. PLease call for any questions or change in neurologic status. Objective: Vital Signs Temp Pulse Resp BP Pulse Ox 37.0 C 75 19 112/56 L 94 07/03/17 19:39 07/03/17 21:05 07/03/17 19:39 07/03/17 21:05 07/03/17 19:39 Laboratory Results 07/03/17 06:05 07/03/17 06:05 07/02/17 07/03/17 07/04/17 05:59 05:59 05:59 Intake Total 1500 Balance 1500 PT 13.9 SEC (12.0-15.0) 07/03/17 06:05 INR 1.05 (0.83-1.16) 07/03/17 06:05 Allergies/Adverse Reactions: No Known Allergies Allergy (Verified 07/02/17 11:17)
--- NOTE | 2017-07-04 11:04 | ECHO ---
[email or web address] [address] [address] Main: [phone] Fax: Transesophageal Echocardiography Name: CINTIA BERNARD MR#: [id number] Study Date: 07/03/2017 Study Time: 01:28 PM Date of : 1960 Age: 57 year(s) Height: ( ) Weight: ( ) BSA: Gender: Male Examination: JENNIFER Indication: r/o MV vegetation Image Quality: Contrast: Requested by: Cintia Bradshaw Heart Rate: Rhythm: BP: / Procedure Staff Chief Nurse: Xochitl Schafer Physician: Richie Vo Requesting Provider: JENNIFER Exam Details Conclusions: No thrombus is noted in the left atrium. No thrombus in right atrium. There is mild thickening of the mitral valve leaflets. Trivial mitral valve regurgitation. There is no mitral valve vegetation. The aortic valve is tri-leaflet. There is no aortic valve regurgitation. There is no aortic valve vegetation. Tricuspid valve not well visualized. Measurements: Chambers Valvular Assessment AV/MV Valvular Assessment TV/PV Normal Normal Normal Name Value Range Name Value Range Name Value Range Additional Measurements: Findings: Left Atrium: No thrombus is noted in the left atrium. Right Atrium: No thrombus in right atrium. Patient: CINTIA BERNARD Study Date: 07/03/2017 Page 1 of 2 01:28 PM Mitral Valve: There is mild thickening of the mitral valve leaflets. Trivial mitral valve regurgitation. There is no mitral valve vegetation. Aortic Valve: The aortic valve is tri-leaflet. There is no aortic valve regurgitation. There is no aortic valve vegetation. Tricuspid Valve: Tricuspid valve not well visualized. Pulmonic Valve: The pulmonic valve is normal in appearance and function. Trivial pulmonic valve regurgitation. l1n (No Signature Object) Patient: CINTIA BERNARD Study Date: 07/03/2017 Page 2 of 2 01:28 PM [id number]
--- NOTE | 2017-07-04 11:28 | HOSPPROG ---
Hospitalist Progress Note Assessment/Plan: This is a 57 yo male with hx of SVC syndrome/obstruction who p/w several weeks of worsening right sided neck and facial swelling as well as right facial droop and right shoulder swelling. -Medically complex -Facial swelling and neck swelling are improving. -Right facial droop is improving -Right arm, axilla, shoulder pain is improving #acute on chronic SVC syndrome, likely due from complication from PPM -Likely needs another stent in place and I have d/w IR who will review the case -Clinically right facial and neck swelling is improving today -Previous Stent in place #?SAH. This is likely due to contrast from CT Myelogram of cervical spine done on the day prior to admission -NS has signed off #malfunctioning Pacemaker. The pacer was interrogated and found to be functional #?Pericarditis. JENNIFER did not show e/o vegetations or mass. No need for Abx. #?Tooth Abscess: not abscess is identified, no need for abx #Right shoulder pain, right arm/axilla pain and neuropathy: Etiology unclear. CT Myelogram is c/w c5/6 foraminal stenosis w/o cervical cord compression. NS recommends that he f/u in [address] Morton vs Dr. Negron. NS has signed off. This could also be due to the significant swelling that he had around his neck. As the swelling has gone down, his pain and symptoms have improved significantly #Right facial droop: Neuro has s/o. This is likely due to compression of the facial nerve due to the swelling. No e/o of CVA. Very reassuring neuro exam. Can f/u with Neuro in 1-4 wees #?Brain Herniation: no e/o herniation on exam or imaging review by NS #HTN: overall well controlled. On Lisinopril and Metoprolol #YUN: on CPAP DVT proph: SCD's Dispo: cont inpatient. Will await recommendations regarding stent. F/U: -With NS in [address] Morton vs Dr. Negron -with Neurology in 1-4 weeks, with Dr. Rosario Subjective: right facial swelling is better. Right arm and shoulder pain is getting better. No CP or SOB. NO N/V Objective: Vital Signs Temp Pulse Resp BP Pulse Ox 36.7 C 57 L 18 128/77 H 96 07/04/17 08:00 12/09/17 08:00 07/04/17 08:00 07/04/17 08:00 07/04/17 08:00 Laboratory Results 07/03/17 06:05 07/03/17 06:05 07/03/17 07/04/17 07/05/17 05:59 05:59 05:59 Intake Total 1500 1000 Balance 1500 1000 PT 13.9 SEC (12.0-15.0) 07/03/17 06:05 INR 1.05 (0.83-1.16) 07/03/17 06:05 - Time Spent With Patient Time Spent with Patient: greater than 35 minutes Time Spent with Patient: Greater than 35 minutes spent on this patients care, greater than 50% of time spent counseling, educating, and coordinating care regarding the above mentioned plan. - Physical Exam Constitutional: no apparent distress Eyes: PERRL, EOMI Ears, Nose, Mouth, Throat: moist mucous membranes, hearing normal, other (right facial droop and swelling. right neck swelling) Cardiovascular: regular rate and rhythym, no murmur, rub, or gallop Respiratory: no respiratory distress, no rales or rhonchi, clear to auscultation Gastrointestinal: normoactive bowel sounds, soft, non-tender abdomen Skin: warm Musculoskeletal: full muscle strength Neurologic: AAOx3, facial droop, No weakness Psychiatric: interacting appropriately, not anxious, not encephalopathic, thought process linear Lymph, Heme, Immunologic: No petechiae ICD10 Worksheet Patient Problems: Problems Problem Status Onset Right facial swelling Acute Stenosis of superior vena cava Acute Subarachnoid bleed Acute
--- NOTE | 2017-07-04 15:43 | PDPROPOC ---
Sedation Plan of Care Sedation Plan of Care: vital signs stable, mental status noted, patient educated of risks, benefits, alternatives, patient can tolerate sedation ASA Classification: ASA 3 Planned drugs: fentanyl, midazolam Mallampati Score: Class 1 Mallampati Reference Image: Patient passed 3-3-2 rule?: Yes
--- NOTE | 2017-07-04 15:50 | SOAPPROG ---
LYNSEY Progress Note Assessment/Plan: Assessment: Possible recurrent SVC syndrome. Plan: Central venography. Balloon plasty/stenting if needed. 07/04/17 15:46 Subjective: Feeling better today. We discussed Superior Vena Cavography and possible intervention (balloon ' plasty +/- stenting) in detail. and Ms. Loving accept risks (technical failure, internal bleeding, thrombosis, restenosis, damage to pacemaker function , allergy) and they wish to proceed tomorrow. Objective: Labs OK. Vital Signs Temp Pulse Resp BP Pulse Ox 36.6 C 81 18 116/73 93 07/04/17 12:00 07/04/17 12:00 07/04/17 08:00 07/04/17 12:00 07/04/17 12:00 Laboratory Results 07/03/17 06:05 07/03/17 06:05 07/03/17 07/04/17 07/05/17 05:59 05:59 05:59 Intake Total 1500 1000 Balance 1500 1000 PT 13.9 SEC (12.0-15.0) 07/03/17 06:05 INR 1.05 (0.83-1.16) 07/03/17 06:05 ICD10 Worksheet Patient Problems: Problems Problem Status Onset Right facial swelling Acute Stenosis of superior vena cava Acute Subarachnoid bleed Acute
[2017-07-04] MEDS ORDERED: NS 1,000 ML IV SCH (16:00)
[2017-07-04] MEDS: ATORVASTATIN CALCIUM 40 MG TAB PO SCH (21:33)
[2017-07-04] MEDS: OMEGA-3 FATTY ACIDS 1,000 MG CAP PO SCH (21:33)
[2017-07-04] MEDS: LISINOPRIL 40 MG TAB PO SCH (21:35)
[2017-07-04] MEDS: METOPROLOL SUCCINATE XR 50 MG TAB PO SCH (21:35)
[2017-07-04] MEDS: MELOXICAM 15 MG PO SCH (21:36)
[2017-07-04] MEDS: SERTRALINE HCL 50 MG TAB PO SCH (21:36)
[2017-07-04] MEDS: HYDROCODONE/APAP 5/325 TAB PO PRN (21:36)
[2017-07-05] MEDS ORDERED: D5W 1/2 NS 1,000 ML IV SCH (06:00)
[2017-07-05] MEDS ORDERED: MEPERIDINE 25 MG/ML SYR IVP PRN (08:46)
[2017-07-05] MEDS ORDERED: PROTAMINE SULFATE 50 MG/5 ML VIAL IVP PRN (08:46)
[2017-07-05] MEDS ORDERED: MIDAZOLAM 2 MG/2 ML VIAL IVP PRN (08:46)
[2017-07-05] MEDS ORDERED: HEPARIN 10,000 UNIT/10 ML MDV IVP PRN (08:46)
[2017-07-05] MEDS ORDERED: FLUMAZENIL 0.5 MG/5 ML MDV IVP PRN (08:46)
[2017-07-05] MEDS ORDERED: fentaNYL 100 MCG/2 ML INJ IVP PRN (08:46)
[2017-07-05] MEDS ORDERED: GLUCAGON HCL 1 MG VIAL IVP PRN (08:46)
[2017-07-05] MEDS ORDERED: NALOXONE HCL 0.4 MG/ML INJ IVP PRN (08:46)
[2017-07-05] MEDS ORDERED: ALTEPLASE 2 MG VIAL IVP PRN (08:46)
[2017-07-05] MEDS ORDERED: NS 1,000 ML IV SCH (09:00)
[2017-07-05] MEDS ORDERED: IOPAMIDOL (ISOVUE-300) 100 ML BTL ONE ×2 (09:42→10:44)
[2017-07-05] MEDS ORDERED: NALOXONE HCL 0.4 MG/ML INJ ONE (09:57)
[2017-07-05] MEDS ORDERED: fentaNYL 100 MCG/2 ML INJ ONE (09:57)
[2017-07-05] MEDS ORDERED: MIDAZOLAM 2 MG/2 ML VIAL ONE (09:58)
[2017-07-05] MEDS ORDERED: FLUMAZENIL 0.5 MG/5 ML MDV IVP ONE (09:58)
[2017-07-05 11:21] VITALS: TEMP 97.3
--- NOTE | 2017-07-05 11:41 | PDRADPN ---
Radiology Procedure Note Date of Procedure: 07/05/17 Radiologist: Ji Bunch Anesthesia: IV Sedation Pre-op Diagnosis: Possible SVC syndrome Post-op Diagnosis: Normal SVC Indication: Pain and swelling Procedure: Bilateral subclavian venography Finding(s): Normal. No stent. No stenosis. Dual chamber left subclavian pacemaker. Inf/Abcess present in the surg proc area at time of surgery?: No EBL: Minimal Complications: 0
[2017-07-05 11:55] VITALS: O2SAT 93
[2017-07-05 12:20] VITALS: BP 116/74; PULSE 55; RESP 14
--- NOTE | 2017-07-05 14:26 | PDDCSUM ---
Discharge Summary Discharge Summary: This is a 57 yo male with hx of SVC syndrome/obstruction who was admitted w several weeks of worsening right sided neck and facial swelling as well as right facial droop and right shoulder swelling. There was also concerns for malfunctioning pacemaker and endocarditis His initial CT chest showed compression of the SVC and it was thought that his swelling was due to this compression. No mass was identified. The etiology was felt to be due to the pacemaker. Once an infection was r/o, the patient had a SVC venogram which was normal and did not show any e/o stenosis or constriction. No previous stent was identified. The pt's swelling was significantly better w.o any interventions and there was no further e/o of the SVC compression. As he is essentially back to baseline and no additional w/u or interventions are planned, he is being discharged. DDX: #acute on chronic SVC syndrome, likely due from complication from PPM -This has resolved w/o intervention -No further e/o of stenosis or SVC constriction #?SAH. This is likely due to contrast from CT Myelogram of cervical spine done on the day prior to admission -NS has signed off. He will f/u with them in 4 weeks. #malfunctioning Pacemaker. The pacer was interrogated and found to be functional #?Pericarditis. JENNIFER did not show e/o vegetations or mass. No need for Abx. #?Tooth Abscess: not abscess is identified, no need for abx #Right shoulder pain, right arm/axilla pain and neuropathy: Etiology unclear. CT Myelogram is c/w c5/6 foraminal stenosis w/o cervical cord compression. NS recommends that he f/u in [address] Morton vs Dr. Negron. NS has signed off. This could also be due to the significant swelling that he had around his neck. As the swelling has gone down, his pain and symptoms have improved significantly #Right facial droop: Neuro has s/o. This is likely due to compression of the facial nerve due to the swelling. No e/o of CVA. Very reassuring neuro exam. Can f/u with Neuro in 1-4 wees #?Brain Herniation: no e/o herniation on exam or imaging review by NS #HTN: overall well controlled. On Lisinopril and Metoprolol #YUN: on CPAP Exam: NAD AAOX3 NECK: NO OBVIOUS SWELLING OR ABNORMALITY Cv: RRR LUNG: CTA B ABD: S/NT/ND SKIN: WARM MEDS: NO NEW MEDS STARTED. SEE MED REC F/U: PER ABOVE TOTAL TIME SPENT ON DISCHARGE IS 35 MINS
--- NOTE | 2017-07-05 16:30 | ASDISCHSUM ---
Discharge Information Plan Status:Home with No Needs Medically Cleared to Leave:07/04/2017 Discharge Date:07/05/2017 03:42 PM CM D/C Disposition:Home, Routine, Self-Care ADT D/C Disposition:Home, Routine, Self-Care Projected Discharge Date:07/05/2017 03:00 PM Transportation at D/C:Family Discharge Delay Reason: Follow-Up Date:07/05/2017 03:00 PM Discharge Slot: Final Diagnosis:R sided facial and neck swelling Placement Information Patient Contact Information Contact Name:ANN Relationship: Address:[address] [place] [address] City:[place] Alternate Phone: [facility]/Zip Code:[place] [address] Email: Financial Information Financial Class:HMO and PPO Plans Primary Plan Desc:[employer] PPO POS HMO Primary Plan Number:[id number] Secondary Plan Desc: Secondary Plan Number: Assessment Information [facility] Initial CM Assessment Living Arrangements What is your living Answers: With Spouse arrangement? Who do you live with? Type Of Residence What kind of residence do Answers: House you live in? Discharge Plan Comments Coordination Status Comments Notes: Patient is a 57yo male with a hx of remote SVC syndrome with stent, pacemaker, who was admitted for unexplained facial swelling and right sided facial droop. No therapies have been ordered. Patient is and lives in [place] with his . D/C needs TBD. Patient will likely d/c home independently. CM will follow. Date Signed: 07/03/2017 11:46 AM Electronically Signed By:Maria Antonia Lake LCSW Case Management Discharge Plan Note Case Management Discharge Discharge Order Complete? Answers: Yes Patient to Obtain Answers: Independently Medications Transportation Arranged Answers: Family/Friends Transport will Pick (Date 07/05/2017 03:00 PM & Time) Family Notified Answers: Yes Notes: Family to transport Discharge Comments Notes: Patient has been discharged. Swelling r/o for cardiac. To follow up with Neurosurg. Date Signed: 07/05/2017 02:56 PM Electronically Signed By:Hanna Hall LCSW Intervention Information
== END 2017-07-05 15:42 | disposition home or self-care (01) | DRG 301 ==
LOC: OBSVTOIN 12:53 → F2N 17:16 → F2W 07-04 14:59
PROVIDERS: ADMIT Internal Medicine; ATTEND Internal Medicine
PROC: B245ZZ4 Ultrasonography of Left Heart, Transesophageal (ICD-10-PCS; principal; 2017-07-03)
DX: I87.1 Compression of vein (principal); R29.810 Facial weakness; E78.5 Hyperlipidemia, unspecified; I10 Essential (primary) hypertension; M25.511 Pain in right shoulder; G47.33 Obstructive sleep apnea (adult) (pediatric); Z95.0 Presence of cardiac pacemaker
CPT/HCPCS: C1769; J1644; J2250; J2310; J2704; J3010; Q9967